=== PATIENT | female | born 1990 | race African-American/Black ===

== ENCOUNTER 2021-08-07 16:54 | Emergency (ER) | payer OTHER ==
[2021-08-07 17:14] VITALS: BP 144/95; PULSE 98; TEMP 98; BMI 29.5
[2021-08-07] MEDS ORDERED: IBUPROFEN 600 MG TABLET (FP) PO ONE ×2 (17:49)
== END 2021-08-07 18:03 | disposition home or self-care (01) ==
LOC: JERFT 16:54
DX: M62.838 Other muscle spasm (principal)
CPT/HCPCS: 99283-25